=== PATIENT | female | born 1975 | race Caucasian/White ===

== ENCOUNTER → 2016-07-15 | Outpatient (CLI) | payer BC | LOC: BHSO 09:09 | DX: F41.1 Generalized anxiety disorder (principal) ==

== ENCOUNTER → 2016-10-07 | Outpatient (CLI) | payer BC | LOC: BHSO 10:33 | DX: F41.1 Generalized anxiety disorder (principal) ==

== ENCOUNTER → 2017-02-17 | Outpatient (CLI) | payer BC | LOC: BHSO 10:41 | DX: F41.1 Generalized anxiety disorder (principal) ==

== ENCOUNTER → 2017-10-28 | Outpatient (CLI) | payer BC | LOC: BHSO 10:50 | DX: F41.1 Generalized anxiety disorder (principal) | CPT/HCPCS: G0463 ==

== ENCOUNTER → 2018-07-13 | Outpatient (CLI) | payer BC | LOC: BHSO 11:05 | DX: F33.42 Major depressive disorder, recurrent, in full remission (principal) | CPT/HCPCS: G0463 ==

== ENCOUNTER → 2018-12-29 | Outpatient (CLI) | payer BC | LOC: BHSO 10:26 | DX: F33.42 Major depressive disorder, recurrent, in full remission (principal) | CPT/HCPCS: G0463 ==

== ENCOUNTER → 2019-07-21 | Outpatient (CLI) | payer BC | LOC: BHSO 07:58 | DX: F41.1 Generalized anxiety disorder (principal) | CPT/HCPCS: G0463 ==

== ENCOUNTER → 2020-08-02 | Outpatient (CLI) | payer BC | LOC: COL.RAD 12:27 | DX: N20.0 Calculus of kidney (principal) ==

== ENCOUNTER → 2020-08-14 | Outpatient (CLI) | payer BC | LOC: COL.RAD 12:35 | DX: M47.816 Spondylosis without myelopathy or radiculopathy, lumbar region (principal) ==